=== PATIENT | female | born 1990 | race African-American/Black ===

== ENCOUNTER 2017-09-03 16:10 | Inpatient (IN) ==
[2017-09-03] MEDS ORDERED: ONDANSETRON 4 MG/2 ML VIAL IV PRN (17:13)
[2017-09-03] MEDS ORDERED: LACTATED RINGERS 1,000 ML IV ONE (17:13)
[2017-09-03] MEDS ORDERED: LACTATED RINGERS 1,000 ML IV SCH (17:30)
[2017-09-03 17:41] LABS: Basophils % 0.5 % (0.0-0.8); Eosinophils % 0.4 % (0.00-10.9); Hematocrit 32.3 VOL% (35.7-47.0); Hemoglobin 10.6 GM/DL (12.0-16.0); Immature Granulocytes % 0.9 %; Immature Granulocytes Absolute 0.05 #; Lymphocytes # 1.6 10*3/uL (1.4-4.0); Lymphocytes % 29.4 % (21.3-54.2); Mean Corpuscular HGB Conc 32.8 GM/DL (32-36); Mean Corpuscular Hemoglobin 30 PG (27-34); Mean Corpuscular Volume 92.6 FL (87-102); Mean Platelet Volume 12.4 FL (9.6-12.0); Monocytes # 0.6 10*3/uL (0.11-0.8); Monocytes % 9.9 % (1.7-12.7); Neutrophils # 3.3 10*3/uL (1.4-7.4); Neutrophils % 58.9 % (38.7-73.9); Platelet Count 154 T/CUMM (130-400); Red Blood Count 3.49 MC/CUMM (3.8-5.5); Red Cell Distribution Width 12.7 % (9.3-17.3); White Blood Count 5.6 T/CUMM (4-12)
[2017-09-03] MEDS ORDERED: diphenhydrAMINE 50 MG/1 ML VIAL IV PRN ×2 (17:54)
[2017-09-03] MEDS ORDERED: ePHEDrine 50 MG/ML AMP IV PRN (17:54)
[2017-09-03] MEDS ORDERED: ONDANSETRON 4 MG/2 ML VIAL IV ONE (17:54)
[2017-09-03] MEDS ORDERED: CITRIC ACID/SODIUM CITRATE 30 ML UDCUP PO ONE (17:54)
[2017-09-03] MEDS ORDERED: hydrOXYzine HCL 25 MG/1 ML VIAL IM PRN (17:54)
[2017-09-03] MEDS ORDERED: PROMETHAZINE 25 MG/1 ML VIAL IM ONE (17:54)
[2017-09-03] MEDS ORDERED: FAMOTIDINE 20 MG/2 ML VIAL IV ONE (17:54)
[2017-09-03] MEDS ORDERED: AMPICILLIN INJ 2,000 MG in SODIUM CHLORIDE 0.9% 100 ML IV ONE (18:00)
[2017-09-03] MEDS ORDERED: fentaNYL 2 MCG/ROPIV 0.2% EPID 150 ML EPIDURAL SCH (18:00)
[2017-09-03 18:42] LABS: Alanine Aminotransferase 23 U/L (13-56); Albumin 2.9 G/DL (3.4-5.0); Alkaline Phosphatase 133 U/L (45-117); Aspartate Amino Transferase 20 U/L (0-37); Bilirubin,Total < 0.39 MG/DL (0.2-1.0); Blood Urea Nitrogen 9 MG/DL (7-18); Calcium 8.9 MG/DL (8.5-10.1); Glucose 67 MG/DL (74-106); Osmolality,Calculated 271.7 MOS/KG (273-304); Sodium 138 MMOL/L (136-145); Total Protein 6.3 G/DL (6.4-8.3); Uric Acid 3.6 MG/DL (2.6-6.0)
[2017-09-03] MEDS: AMPICILLIN INJ 1,000 MG in SODIUM CHLORIDE 0.9% 100 ML IV SCH (22:10)
[2017-09-03 23:05] LABS: Apearance,Urine CLEAR (Clear); Bilirubin,Urine Negative (Negative); Blood, Urine Negative (Negative); Glucose,Urine (UA) Negative (Negative); Ketones,Urine 20 mg/dL (Negative); Mucus,Urine Occasional /LPF (Occasional); Nitrite,Urine Negative (Negative); Protein,Urine Negative; RBC,Urine 1 /HPF (0-4); Urine Color Yellow (Yellow); Urine Specific Gravity 1.011 (1.001-1.035); Urine Urobilinogen < 2.0 EU/DL (0.2-1.0)
[2017-09-04] MEDS ORDERED: miSOPROStol 200 MCG TABLET ONE (02:06)
[2017-09-04] MEDS ORDERED: OXYTOCIN/LR 20 UNIT/1,000 ML BAG IV ONE ×3 (02:35→04:25)
[2017-09-04 03:18] LABS: Cord Arterial Blood HCO3 26.7 MMOL/L; Cord Venous Blood HCO3 22.2 MMOL/L; Cord Venous Blood PCO2 37.7 MMHG; Cord Venous Blood PO2 47.6 MMHG
[2017-09-04] MEDS: AMPICILLIN INJ 1,000 MG in SODIUM CHLORIDE 0.9% 100 ML IV SCH (03:40)
[2017-09-04] MEDS ORDERED: MEASLES/MUMPS/RUBELLA VACCINE 0.5 ML VIAL SUBCUT ONE (04:25)
[2017-09-04] MEDS ORDERED: oxyCODONE/ACETAMINOPHEN 5-325 MG TABLET PO PRN (04:25)
[2017-09-04] MEDS ORDERED: BISACODYL 10 MG SUPP RECTAL PRN (04:25)
[2017-09-04] MEDS ORDERED: LANOLIN 50% CREAM 0.3 OZ TUBE TOP PRN (04:25)
[2017-09-04] MEDS ORDERED: RHO(D) IMMUNE GLOBULIN 300 MCG SYRINGE IM ONE ×2 (04:25→19:00)
[2017-09-04] MEDS ORDERED: ONDANSETRON 4 MG/2 ML VIAL IV PRN (04:25)
[2017-09-04] MEDS ORDERED: BENZOCAINE 20%/MENTHOL 0.5% SPRAY 56 GM CAN TOP PRN (04:25)
[2017-09-04] MEDS ORDERED: WITCH HAZEL PADS 100/JAR TOP PRN (04:25)
[2017-09-04] MEDS ORDERED: HYDROCORTISONE 2.5% RECTAL CREAM 30 GM TUBE TOP PRN (04:25)
[2017-09-04] MEDS: IBUPROFEN 800 MG TABLET PO PRN ×3 (04:43→20:30)
[2017-09-04] MEDS: oxyCODONE/ACETAMINOPHEN 5-325 MG TABLET PO PRN ×2 (04:43→08:24)
[2017-09-04] MEDS ORDERED: DIPH/TET/ACEL PERT BOOSTER VACCINE 0.5 ML VIAL IM ONE (09:00)
[2017-09-04] MEDS: DOCUSATE SODIUM 100 MG CAPSULE PO SCH ×2 (11:16→20:18)
[2017-09-05] MEDS: oxyCODONE/ACETAMINOPHEN 5-325 MG TABLET PO PRN ×2 (07:33→21:09)
[2017-09-05 07:46] LABS: Basophils % 0.6 % (0.0-0.8); Eosinophils # 0.1 10*3/uL (0.0-0.87); Eosinophils % 0.8 % (0.00-10.9); Hematocrit 27.2 VOL% (35.7-47.0); Hemoglobin 8.9 GM/DL (12.0-16.0); Immature Granulocytes % 0.5 %; Immature Granulocytes Absolute 0.03 #; Lymphocytes # 2.6 10*3/uL (1.4-4.0); Lymphocytes % 40.1 % (21.3-54.2); Mean Corpuscular HGB Conc 32.7 GM/DL (32-36); Mean Corpuscular Hemoglobin 30 PG (27-34); Mean Corpuscular Volume 91.6 FL (87-102); Mean Platelet Volume 12.6 FL (9.6-12.0); Monocytes # 0.6 10*3/uL (0.11-0.8); Monocytes % 8.6 % (1.7-12.7); Neutrophils # 3.2 10*3/uL (1.4-7.4); Neutrophils % 49.4 % (38.7-73.9); Platelet Count 131 T/CUMM (130-400); Red Blood Count 2.97 MC/CUMM (3.8-5.5); Red Cell Distribution Width 12.9 % (9.3-17.3); White Blood Count 6.5 T/CUMM (4-12)
[2017-09-05] MEDS: DOCUSATE SODIUM 100 MG CAPSULE PO SCH ×2 (10:44→21:09)
[2017-09-05] MEDS: FERROUS SULFATE 325 MG TABLET PO SCH ×2 (10:44→21:09)
[2017-09-05] MEDS: ACETAMINOPHEN 325 MG TABLET PO PRN ×2 (11:16→17:23)
[2017-09-06] MEDS: ACETAMINOPHEN 325 MG TABLET PO PRN (01:54)
[2017-09-06 07:19] VITALS: BP 118/73
[2017-09-06] MEDS: FERROUS SULFATE 325 MG TABLET PO SCH (09:51)
[2017-09-06] MEDS: DOCUSATE SODIUM 100 MG CAPSULE PO SCH (09:51)
[2017-09-06] MEDS: oxyCODONE/ACETAMINOPHEN 5-325 MG TABLET PO PRN (15:09)
== END 2017-09-06 19:10 | disposition home or self-care (01) | DRG 775 ==
LOC: N.LDOUT 16:10 → N.LD 16:20 → N.OB 09-04 05:20
PROVIDERS: ADMIT Obstetrics & Gynecology; ATTEND Obstetrics & Gynecology